=== PATIENT | male | born 1985 | race American Indian/Alaskan Native ===

== ENCOUNTER 2022-04-25 14:44 | Emergency (ER) | payer OTHER ==
[2022-04-25 19:54] VITALS: BP 140/82
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
== END 2022-04-25 20:35 | disposition home or self-care (01) ==
LOC: ED 14:44
DX: M54.2 Cervicalgia (principal); M79.602 Pain in left arm; M54.6 Pain in thoracic spine; V87.7XXA Person injured in collision between other specified motor vehicles (traffic), initial encounter; Y93.89 Activity, other specified; Y92.488 Other paved roadways as the place of occurrence of the external cause; Y99.8 Other external cause status; F17.200 Nicotine dependence, unspecified, uncomplicated
CPT/HCPCS: 99282